=== PATIENT | female | born 1965 | race Caucasian/White ===

== ENCOUNTER 2023-09-15 04:41 | Day surgery (SDC) | payer OTHER ==
[2023-09-12 12:26] VITALS: BMI 22.6
[2023-09-15 08:26] VITALS: TEMP 97
[2023-09-15 08:56] VITALS: BP 108/59; PULSE 63; RESP 15
== END 2023-09-15 09:09 | disposition home or self-care (01) ==
LOC: JASU-ENDO 04:41
PROVIDERS: ATTEND Internal Medicine Gastroenterology
PROC: 0DBK8ZX Excision of Ascending Colon, Via Natural or Artificial Opening Endoscopic, Diagnostic (ICD-10-PCS; principal; 2023-09-15 08:00)
DX: Z12.11 Encounter for screening for malignant neoplasm of colon (principal); D12.2 Benign neoplasm of ascending colon; K64.8 Other hemorrhoids
CPT/HCPCS: 88305-TC

== ENCOUNTER 2024-02-20 20:26 | Emergency (ER) | payer OTHER ==
[2024-02-20 20:34] VITALS: BP 160/83; PULSE 62; RESP 18; TEMP 97.5; BMI 23.3
[2024-02-20] MEDS ORDERED: ACETAMINOPHEN INJECTION 100 ML IVPB ONE (22:05)
[2024-02-20] MEDS ORDERED: METOCLOPRAMIDE HCL INJECTION 10 MG/2 ML VIAL ONE (22:05)
[2024-02-20] MEDS: ACETAMINOPHEN 1000 MG/100 ML BAG IVPB ONE (22:23)
[2024-02-20] MEDS: SODIUM CHLORIDE 0.9% 500 ML INFUS.BAG IV ONE (22:23)
[2024-02-20] MEDS: METOCLOPRAMIDE HCL INJECTION 10 MG/2 ML VIAL IVPB ONE (22:24)
[2024-02-20 22:28] LABS: BASO % 0.4 % (0-2.0); EOS % 0.9 % (0-4.5); HEMATOCRIT 39.8 % (32.4-45.2); HEMOGLOBIN 13.1 GM/dL (10.7-15.3); LYMPH % 30.1 % (8-40); MCH 30.6 pg (25.7-33.7); MEAN CELL VOLUME 92.9 fl (80-96); MONO % 7.1 % (3.8-10.2); NEUT % 61.5 % (42.8-82.8); PLATELET COUNT 289 10^3/uL (134-434); RBC 4.28 M/mm3 (3.60-5.2); RDW 12.9 % (11.6-15.6); WHITE BLOOD COUNT 5.5 K/mm3 (4.0-10.0)
[2024-02-20 23:02] LABS: POTASSIUM 4.6 mmol/L (3.5-5.1)
[2024-02-20 23:04] LABS: ALBUMIN 3.7 g/dl (3.4-5.0); CALCIUM 9.9 mg/dL (8.5-10.1); MAGNESIUM 2.3 mg/dL (1.8-2.4)
[2024-02-20 23:07] LABS: CREATININE 0.7 mg/dL (0.55-1.3)
[2024-02-20 23:09] LABS: BILIRUBIN,TOTAL 0.2 mg/dL (0.2-1); TOT PROT 7.1 g/dl (6.4-8.2)
== END 2024-02-21 02:05 | disposition home or self-care (01) ==
LOC: JER 20:26
PROC: 3E030NZ Introduction of Analgesics, Hypnotics, Sedatives into Peripheral Vein, Open Approach (ICD-10-PCS; principal; 2024-02-20)
PROC: 3E030GC Introduction of Other Therapeutic Substance into Peripheral Vein, Open Approach (ICD-10-PCS; 2024-02-20)
DX: R51.9 Headache, unspecified (principal); R53.1 Weakness; R42 Dizziness and giddiness; R11.0 Nausea
CPT/HCPCS: 36415; 70450-TC; 80053; 83735; 85025; 93005; 93010; 99285-25; J0131

== ENCOUNTER 2024-03-22 04:30 | Day surgery (SDC) | payer OTHER ==
[2024-03-18 11:20] VITALS: BMI 23.3
[2024-03-22] MEDS ORDERED: FENTANYL CITRATE/PF 50 MCG/ML VIAL ONE ×2 (13:44→13:59)
[2024-03-22] MEDS ORDERED: MIDAZOLAM HCL 2 MG/2 ML SINGLE DOSE VIAL ONE (13:44)
[2024-03-22 14:38] VITALS: RESP 18
[2024-03-22 17:14] VITALS: BP 121/72; PULSE 74; TEMP 97.8
== END 2024-03-22 17:36 | disposition home or self-care (01) ==
LOC: JASU-SURG 04:30
PROVIDERS: ATTEND Urology
PROC: 0TF4XZZ Fragmentation in Left Kidney Pelvis, External Approach (ICD-10-PCS; principal; 2024-03-22 12:30)
DX: N20.0 Calculus of kidney (principal)